=== PATIENT | female | born 1980 | race Caucasian/White ===

== ENCOUNTER 2019-07-05 17:28 | Inpatient (IN) | payer MEDICAID ==
[2019-07-05] MEDS ORDERED: Tranexamic Acid 1,000 MG in Sodium Chloride 0.9% 100 ML IV PRN (17:33)
[2019-07-05] MEDS ORDERED: Sodium Chloride 0.9% 10 ML SDV IV PRN (17:33)
[2019-07-05] MEDS ORDERED: Water For Irrigation,Sterile 1,000 ML Container IRR PRN (17:33)
[2019-07-05] MEDS ORDERED: Nalbuphine 10 MG/1 ML Vial IVPUSH PRN (17:33)
[2019-07-05] MEDS ORDERED: Sodium Chloride 0.9% 2.5 ML Syringe FLUSH PRN (17:33)
[2019-07-05] MEDS ORDERED: Lidocaine 1% 50 ML MDV INJECT PRN (17:33)
[2019-07-05] MEDS ORDERED: Misoprostol 200 MCG Tab PO PRN (17:33)
[2019-07-05] MEDS ORDERED: Ondansetron 4 MG/2 ML SDV IVPUSH PRN (17:33)
[2019-07-05] MEDS ORDERED: Methylergonovine 0.2 MG/1 ML Amp IM PRN (17:33)
[2019-07-05] MEDS ORDERED: Butorphanol 1 MG/ML SDV IVPUSH PRN (17:33)
[2019-07-05] MEDS ORDERED: Sodium Chloride 0.9% 10 ML Syringe FLUSH PRN (17:33)
[2019-07-05] MEDS ORDERED: Carboprost Tromethamine 250 MCG/1 ML Amp IM PRN (17:33)
[2019-07-05] MEDS ORDERED: Lactated Ringers 1,000 ML IV SCH (17:45)
[2019-07-05] MEDS ORDERED: Oxytocin/0.9 % Sodium Chloride 30 UNIT/500 ML BAG IV SCH (17:45)
--- NOTE | 2019-07-05 18:00 | PCM.LDHP ---
L&D History of Present Illness - General Date of Service: 07/05/19 Admit Problem/Dx: Patient Status Order with Admit Dx/Problem 07/05/19 17:33 Patient Status [ADT] Routine Admission Diagnosis/Problem Admission Diagnosis/Problem 07/05/19 17:55 at 39 5/7 weeks (PRINCESS: 07/07/19) presenting at 5 cm with bulging bag per nurse report; she is a TOLAC candidate with consents signed by Dr. Vásquez; (one prior vaginal delivery followed by one at 34 weeks due to PPROM x52 days, oligohydramnios, and mark breech position @ [facility] in [place]); O+, rubella immune, GBS negative 07/05/19 17:56 Source of Information: Patient History Limitations: Reports: No Limitations - Related Data Allergies/Adverse Reactions: Allergies Allergy/AdvReac Type Severity Reaction Status Date / Time No Known Allergies Allergy Verified 07/05/19 14:13 Home Medications: Home Meds Vit No.130/Iron/Folic [ Vitamins] 1 tab PO DAILY 03/17/15 [ History] H&P Review of Systems - Review of Systems: Review Of Systems: See Below General: Reports: No Symptoms HEENT: Reports: No Symptoms Pulmonary: Reports: No Symptoms Cardiovascular: Reports: No Symptoms Gastrointestinal: Reports: No Symptoms Genitourinary: Reports: No Symptoms Musculoskeletal: Reports: No Symptoms Skin: Reports: No Symptoms Psychiatric: Reports: No Symptoms Neurological: Reports: No Symptoms Hematologic/Lymphatic: Reports: No Symptoms Immunologic: Reports: No Symptoms L&D Exam - Exam Exam: See Below - OB Specific Contraction Intensity: Moderate Movement: Active Heart Tones: Present Heart Rate (FHR) Variability: Moderate (6-25 bmp) - Ahumada Score Ahumada Score Cervix Position: Posterior Ahumada Score Consistency: Soft Ahumada Score Effacement: >80% Ahumada Score Dilation: > 5 cm Ahumada Score 's Station: -2 Ahumada Score Total: 9 - Exam General: Alert, Oriented, Cooperative Lungs: Normal Respiratory Effort Cardiovascular: Regular Rate, Regular Rhythm GI/Abdominal Exam: Soft, Non-Tender Back Exam: Normal Inspection, Full Range of Motion Extremities: Normal Inspection, Normal Range of Motion, Non-Tender, Normal Capillary Refill Skin: Warm, Dry, Intact Neurological: Strength Equal Bilateral, Normal Gait, Normal Speech, Normal Tone , Sensation Intact Psychiatric: Alert, Normal Affect, Normal Mood - Problem List (1) Supervision of normal IUP (intrauterine ) in multigravida SNOMED Code(s): 859955958, 679335622, 945481441 ICD Code: Z34.80 - ENCOUNTER FOR SUPRVSN OF NORMAL , UNSP TRIMESTER Status: Acute Priority: High Current Visit: Yes Qualifiers: Trimester: third trimester Qualified Code(s): Z34.83 - Encounter for supervision of other normal , third trimester Problem List Initiated/Reviewed/Updated: Yes Orders Last 24hrs: Active Orders 24 hr Category Date Time Status Patient Status [ADT] Routine ADT 07/05/19 17:33 Active Heart Tones [RC] CONTINUOUS Care 07/05/19 17:33 Active Non Stress Test [RC] PER UNIT ROUTINE Care 07/05/19 17:33 Active May Shower [RC] ASDIRECTED Care 07/05/19 17:33 Active Notify Provider [RC] PRN Care 07/05/19 17:33 Active Up ad Ramona [RC] ASDIRECTED Care 07/05/19 17:33 Active Vaginal Exam [RC] PRN Care 07/05/19 17:33 Active Vital Signs [RC] PER UNIT ROUTINE Care 07/05/19 17:33 Active CBC W/O DIFF,HEMOGRAM [HEME] Routine Lab 07/05/19 17:33 Ordered RPR (SYPHILIS SERO) W/ RFLX [REF] Routine Lab 07/05/19 17:33 Ordered TYPE AND SCREEN [BBK] Routine Lab 07/05/19 17:33 Ordered Butorphanol [Stadol] Med 07/05/19 17:33 Active 1 mg IVPUSH Q1H PRN Carboprost Tromethamine [Hemabate DS] Med 07/05/19 17:33 Active 250 mcg IM ASDIRECTED PRN Lactated Ringers [Ringers, Lactated] 1,000 ml Med 07/05/19 17:45 Active IV ASDIRECTED Lidocaine 1% [Xylocaine 1%] Med 07/05/19 17:33 Active 50 ml INJECT ONETIME PRN Methylergonovine [Methergine] Med 07/05/19 17:33 Active 0.2 mg IM ASDIRECTED PRN Nalbuphine [Nubain] Med 07/05/19 17:33 Active 10 mg IVPUSH Q1H PRN Ondansetron [Zofran] Med 07/05/19 17:33 Active 4 mg IVPUSH Q4H PRN Oxytocin/0.9 % Sodium Chloride [Oxytocin 30 Unit/500 ML Med 07/05/19 17:45 Active -NS] 30 unit in 500 ml IV TITRATE Sodium Chloride 0.9% [Normal Saline] Med 07/05/19 17:33 Active 10 ml IV ASDIRECTED PRN Sodium Chloride 0.9% [Saline Flush] Med 07/05/19 17:33 Active 10 ml FLUSH ASDIRECTED PRN Sodium Chloride 0.9% [Saline Flush] Med 07/05/19 17:33 Active 2.5 ml FLUSH ASDIRECTED PRN Tranexamic Acid [Cyklokapron] 1,000 mg Med 07/05/19 17:33 Active Sodium Chloride 0.9% [Normal Saline] 100 ml IV ONETIME Water For Irrigation,Sterile [Sterile Water for Med 07/05/19 17:33 Active Irrigation] 1,000 ml IRR ASDIRECTED PRN miSOPROStoL [Cytotec] Med 07/05/19 17:33 Active 200 mcg PO ONETIME PRN Scalp Electrode [WOMSER] Per Unit Routine Oth 07/05/19 17:33 Ordered Peripheral IV Insertion Adult [OM.PC] Routine Oth 07/05/19 17:33 Ordered Resuscitation Status Routine Resus Stat 07/05/19 17:33 Ordered Medication Orders Butorphanol Tartrate (Stadol) 1 mg IVPUSH Q1H PRN PRN Reason: Pain Carboprost Tromethamine (Hemabate Ds) 250 mcg IM ASDIRECTED PRN PRN Reason: Post Hemorrhage Lactated Ringer's (Ringers, Lactated) 1,000 mls @ 150 mls/hr IV ASDIRECTED SANTIAGO Oxytocin/Sodium Chloride (Oxytocin 30 Unit/500 Ml-Ns) 30 unit in 500 mls @ 500 mls/hr IV TITRATE S[facility]IAGO Tranexamic Acid 1,000 mg/ (Sodium Chloride) 110 mls @ 660 mls/hr IV ONETIME PRN PRN Reason: Bleeding Lidocaine HCl (Xylocaine 1%) 50 ml INJECT ONETIME PRN PRN Reason: Laceration repair Methylergonovine Maleate (Methergine) 0.2 mg IM ASDIRECTED PRN PRN Reason: Post Hemorrhage Misoprostol (Cytotec) 200 mcg PO ONETIME PRN PRN Reason: Post Hemorrhage Nalbuphine HCl (Nubain) 10 mg IVPUSH Q1H PRN PRN Reason: Pain (severe 7-10) Ondansetron HCl (Zofran) 4 mg IVPUSH Q4H PRN PRN Reason: Nausea/Vomiting Sodium Chloride (Saline Flush) 10 ml FLUSH ASDIRECTED PRN PRN Reason: Keep Vein Open Sodium Chloride (Saline Flush) 2.5 ml FLUSH ASDIRECTED PRN PRN Reason: Keep Vein Open Sodium Chloride (Normal Saline) 10 ml IV ASDIRECTED PRN PRN Reason: IV Use Sterile Water (Sterile Water For Irrigation) 1,000 ml IRR ASDIRECTED PRN PRN Reason: delivery Assessment/Plan Comment:: Admit A: at 39 5/7 weeks (PRINCESS: 07/07/19) presenting at 5 cm with bulging bag per nurse report; she is a TOLAC candidate with consents signed by Dr. Vásquez; ( one prior vaginal delivery followed by one at 34 weeks due to PPROM x52 days, oligohydramnios, and mark breech position @ [facility] in [place]); O+, rubella immune, GBS negative P: Anticipate ; OR team, peds, and respiratory notified; Dr. Vásquez updated.
--- NOTE | 2019-07-05 18:26 | PCM.PREANE ---
Preanesthetic Assessment - Procedure Proposed Procedure: Standby for Delivery - Anesthesia/Transfusion/Family Hx Anesthesia History: Prior Anesthesia Without Reaction Family History of Anesthesia Reaction: No Transfusion History: Prior Transfusion Without Reaction - Review of Systems General: No Symptoms Pulmonary: No Symptoms Cardiovascular: No Symptoms Gastrointestinal: No Symptoms Neurological: No Symptoms Other: Reports: None - Physical Assessment Height: 5 ft 7 in Weight: 77.111 kg ASA Class: 2 Mental Status: Alert & Oriented x3 Airway Class: Mallampati = 1 Dentition: Reports: Normal Dentition Thyro-Mental Finger Breadths: 3 Mouth Opening Finger Breadths: 3 ROM/Head Extension: Full Lungs: Clear to Auscultation, Normal Respiratory Effort Cardiovascular: Regular Rate, Regular Rhythm - Lab Values: Laboratory Last Values WBC 8.83 K/uL (4.0-11.0) 07/05/19 17:53 RBC 3.84 M/uL (4.30-5.90) L 07/05/19 17:53 Hgb 12.2 g/dL (12.0-16.0) 07/05/19 17:53 Hct 35.4 % (36.0-46.0) L 07/05/19 17:53 MCV 92.2 fL (80.0-98.0) 07/05/19 17:53 MCH 31.8 pg (27.0-32.0) 07/05/19 17:53 MCHC 34.5 g/dL (31.0-37.0) 07/05/19 17:53 RDW Std Deviation 47.9 fl (28.0-62.0) 07/05/19 17:53 RDW Coeff of Nataliya 14 % (11.0-15.0) 07/05/19 17:53 Plt Count 231 K/uL (150-400) 07/05/19 17:53 MPV 9.50 fL (7.40-12.00) 07/05/19 17:53 Nucleated RBC % 0.0 /100WBC 07/05/19 17:53 Nucleated RBCs # 0 K/uL 07/05/19 17:53 - Allergies Allergies/Adverse Reactions: Allergies Allergy/AdvReac Type Severity Reaction Status Date / Time No Known Allergies Allergy Verified 07/05/19 14:13 - Blood Blood Available: Yes Product(s) Available: PRBC - Anesthesia Plan Free Text/Narrative:: Standby for Delivery. Plan SAB or GETA as pertinent to situation as needed. - Acknowledgements Anesthesia Type Planned: General Anesthesia, Spinal Pt an Appropriate Candidate for the Planned Anesthesia: Yes Alternatives and Risks of Anesthesia Discussed w Pt/Guardian: Yes Pt/Guardian Understands and Agrees with Anesthesia Plan: Yes PreAnesthesia Questionnaire HEENT History: Reports: None Cardiovascular History: Reports: None Respiratory History: Reports: None Gastrointestinal History: Reports: GERD Genitourinary History: Reports: None COURT CRIER History: Reports: : 3 Para: 2 LMP (Approximate): Other OB/BYN History: Previous C- Section Musculoskeletal History: Reports: None Neurological History: Reports: None Psychiatric History: Reports: None Endocrine/Metabolic History: Reports: None Hematologic History: Reports: None Other Hematologic History: Hx of Blood Transfuion with first delivery in 2006 Immunologic History: Reports: None Oncologic (Cancer) History: Reports: None Dermatologic History: Reports: None - Infectious Disease History Infectious Disease History: Reports: None - Past Surgical History GI Surgical History: Reports: Appendectomy Female Surgical History: Reports: Breast Implant, Section 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 Breast Implants - SUBSTANCE USE Smoking Status *Q: Never Smoker Tobacco Use Within Last Twelve Months: No Second Hand Smoke Exposure: No Recreational Drug Use History: No - HOME MEDS Home Medications: Home Meds Vit No.130/Iron/Folic [ Vitamins] 1 tab PO DAILY 03/17/15 [ History] - CURRENT (IN HOUSE) MEDS Current Meds: Current Medications Butorphanol Tartrate (Stadol) 1 mg IVPUSH Q1H PRN PRN Reason: Pain Carboprost Tromethamine (Hemabate Ds) 250 mcg IM ASDIRECTED PRN PRN Reason: Post Hemorrhage Lactated Ringer's (Ringers, Lactated) 1,000 mls @ 150 mls/hr IV ASDIRECTED [facility] Last Admin: 07/05/19 18:17 Dose: 150 mls/hr Oxytocin/Sodium Chloride (Oxytocin 30 Unit/500 Ml-Ns) 30 unit in 500 mls @ 500 mls/hr IV TITRATE [facility] Tranexamic Acid 1,000 mg/ (Sodium Chloride) 110 mls @ 660 mls/hr IV ONETIME PRN PRN Reason: Bleeding Lidocaine HCl (Xylocaine 1%) 50 ml INJECT ONETIME PRN PRN Reason: Laceration repair Methylergonovine Maleate (Methergine) 0.2 mg IM ASDIRECTED PRN PRN Reason: Post Hemorrhage Misoprostol (Cytotec) 200 mcg PO ONETIME PRN PRN Reason: Post Hemorrhage Nalbuphine HCl (Nubain) 10 mg IVPUSH Q1H PRN PRN Reason: Pain (severe 7-10) Ondansetron HCl (Zofran) 4 mg IVPUSH Q4H PRN PRN Reason: Nausea/Vomiting Sodium Chloride (Saline Flush) 10 ml FLUSH ASDIRECTED PRN PRN Reason: Keep Vein Open Sodium Chloride (Saline Flush) 2.5 ml FLUSH ASDIRECTED PRN PRN Reason: Keep Vein Open Sodium Chloride (Normal Saline) 10 ml IV ASDIRECTED PRN PRN Reason: IV Use Sterile Water (Sterile Water For Irrigation) 1,000 ml IRR ASDIRECTED PRN PRN Reason: delivery
--- NOTE | 2019-07-05 18:37 | PCM.SN.2 ---
- Free Text/Narrative Note: 07/05/2019: Called at 1733 by nursing supervisor slate splitting for patient planning and dilated to 5 cm. Arrived at 1745 and reviewed H&P with patient, patient's spouse , and Tarsha (Nurse Switcher). Patient speaks broken Andorran. assisting with translation. No questions at this time.
--- NOTE | 2019-07-05 19:20 | PCM.DEL ---
L & D Note - General Info Date of Service: 07/05/19 Mother's Due Date: 07/07/19 - Delivery Note Labor: Spontaneous Delivery Outcome: Livebirth Infant Delivery Method: Spontaneous Vaginal Delivery-Single Presentation: Vertex Nuchal Cord: Present, Reduced (x2) Anesthesia Type: None Anesthetic: Lidocaine (Xylocaine) 1% Plain Local Anesthetic Volume: 2cc Amniotic Fluid Description: Clear Episiotomy Type: None Laceration: 2nd Degree Suture type: Vicryl Suture size: 3-0 Placenta: Intact, Spontaneous Cord: 3 Vessels Estimated Blood Loss: 250 Resuscitation Needed: No Score 1 min: 8 Score 5 min: 9 Second Stage Interventions: Reports: Second Nurse Assessed Progress of Descent, Second Nurse Reviewed Contraction Pattern, Second Nurse Reviewed Heart Tones, Encouragement Given, Pushing Effectively Delivery Comments (Free Text/Narrative):: () viable female; head delivered with good pushing, shoulders and body followed easily after; baby to mom's abdomen [id number] for assessment; APGARs 8/9, weight pending; upon cessation of pulsing, cord was doubly clamped, cut by FOB; placenta delivered grossly intact, 3VC, EBL 250 mL; 2nd degree perineal laceration repaired with 3-0 vircyl, hemostatic and well-approximated; pitocin to IVF; fundus firm; bleeding scant; mom and baby left in stable condition with nurse at bedside for assessment - General Info Date of Service: 07/05/19 Admission Dx/Problem (Free Text): Patient Status Order with Admit Dx/Problem 07/05/19 17:33 Patient Status [ADT] Routine Admission Diagnosis/Problem Admission Diagnosis/Problem 07/05/19 17:55 at 39 5/7 weeks (PRINCESS: 07/07/19) presenting at 5 cm with bulging bag per nurse report; she is a TOLAC candidate with consents signed by Dr. Vásquez; (one prior vaginal delivery followed by one at 34 weeks due to PPROM x52 days, oligohydramnios, and mark breech position @ [facility] in [place]); O+, rubella immune, GBS negative 07/05/19 17:56 Functional Status: Reports: Pain Controlled - Review of Systems General: Reports: No Symptoms HEENT: Reports: No Symptoms Pulmonary: Reports: No Symptoms Cardiovascular: Reports: No Symptoms Gastrointestinal: Reports: No Symptoms Genitourinary: Reports: No Symptoms Musculoskeletal: Reports: No Symptoms Skin: Reports: No Symptoms Neurological: Reports: No Symptoms Psychiatric: Reports: No Symptoms - Patient Data Weight - Most Recent: 170 lb Lab Results Last 24 Hours: Laboratory Results - last 24 hr 07/05/19 07/05/19 Range/Units 17:53 17:53 WBC 8.83 (4.0-11.0) K/uL RBC 3.84 L (4.30-5.90) M/uL Hgb 12.2 (12.0-16.0) g/dL Hct 35.4 L (36.0-46.0) % MCV 92.2 (80.0-98.0) fL MCH 31.8 (27.0-32.0) pg MCHC 34.5 (31.0-37.0) g/dL RDW Std Deviation 47.9 (28.0-62.0) fl RDW Coeff of Nataliya 14 (11.0-15.0) % Plt Count 231 (150-400) K/uL MPV 9.50 (7.40-12.00) fL Nucleated RBC % 0.0 /100WBC Nucleated RBCs # 0 K/uL Blood Type O POSITIVE Antibody Screen NEGATIVE Crossmatch See Detail Med Orders - Current: Current Medications Butorphanol Tartrate (Stadol) 1 mg IVPUSH Q1H PRN PRN Reason: Pain Carboprost Tromethamine (Hemabate Ds) 250 mcg IM ASDIRECTED PRN PRN Reason: Post Hemorrhage Lactated Ringer's (Ringers, Lactated) 1,000 mls @ 150 mls/hr IV ASDIRECTED [facility] Last Admin: 07/05/19 18:17 Dose: 150 mls/hr Oxytocin/Sodium Chloride (Oxytocin 30 Unit/500 Ml-Ns) 30 unit in 500 mls @ 500 mls/hr IV TITRATE [facility] Tranexamic Acid 1,000 mg/ (Sodium Chloride) 110 mls @ 660 mls/hr IV ONETIME PRN PRN Reason: Bleeding Lidocaine HCl (Xylocaine 1%) 50 ml INJECT ONETIME PRN PRN Reason: Laceration repair Methylergonovine Maleate (Methergine) 0.2 mg IM ASDIRECTED PRN PRN Reason: Post Hemorrhage Misoprostol (Cytotec) 200 mcg PO ONETIME PRN PRN Reason: Post Hemorrhage Nalbuphine HCl (Nubain) 10 mg IVPUSH Q1H PRN PRN Reason: Pain (severe 7-10) Ondansetron HCl (Zofran) 4 mg IVPUSH Q4H PRN PRN Reason: Nausea/Vomiting Sodium Chloride (Saline Flush) 10 ml FLUSH ASDIRECTED PRN PRN Reason: Keep Vein Open Sodium Chloride (Saline Flush) 2.5 ml FLUSH ASDIRECTED PRN PRN Reason: Keep Vein Open Sodium Chloride (Normal Saline) 10 ml IV ASDIRECTED PRN PRN Reason: IV Use Sterile Water (Sterile Water For Irrigation) 1,000 ml IRR ASDIRECTED PRN PRN Reason: delivery - Exam General: Alert, Oriented, Cooperative, No Acute Distress Lungs: Normal Respiratory Effort Cardiovascular: Regular Rate, Regular Rhythm GI/Abdominal Exam: Soft, Non-Tender (2nd degree laceration repaired with 3-0 vicryl, hemostatic, well-approximated) (Female) Exam: Normal External Exam Back Exam: Normal Inspection, Full Range of Motion Extremities: Normal Inspection, Normal Range of Motion, Non-Tender, Normal Capillary Refill Skin: Warm, Dry, Intact Neurological: No New Focal Deficit, Normal Speech, Normal Tone Psy/Mental Status: Alert, Normal Affect, Normal Mood - Problem List & Annotations (1) Supervision of normal IUP (intrauterine ) in multigravida SNOMED Code(s): 935495716, 125378555, 436152669 Code(s): Z34.80 - ENCOUNTER FOR SUPRVSN OF NORMAL , UNSP TRIMESTER Status: Acute Priority: High Current Visit: Yes Qualifiers: Trimester: third trimester Qualified Code(s): Z34.83 - Encounter for supervision of other normal , third trimester (2) (vaginal after ) SNOMED Code(s): 634294566 Code(s): O34.219 - MATERNAL CARE FOR UNSP TYPE SCAR FROM PREVIOUS DEL Status: Acute Priority: High Current Visit: Yes (3) , delivered, current hospitalization SNOMED Code(s): 777282464 Code(s): O34.219 - MATERNAL CARE FOR UNSP TYPE SCAR FROM PREVIOUS DEL Status: Acute Priority: High Current Visit: Yes - Problem List Review Problem List Initiated/Reviewed/Updated: Yes - Plan Plan:: Admit A: at 39 5/7 weeks (PRINCESS: 07/07/19) presenting at 5 cm with bulging bag per nurse report; she is a TOLAC candidate with consents signed by Dr. Vásquez; ( one prior vaginal delivery followed by one at 34 weeks due to PPROM x52 days, oligohydramnios, and mark breech position @ [facility] in [place]); O+, rubella immune, GBS negative P: Anticipate ; OR team, peds, and respiratory notified; Dr. Vásquez updated. Labor A: () viable female; baby to mom's abdomen [id number] for assessment; APGARs 8/9, weight pending; placenta delivered grossly intact, 3VC, EBL 250 mL; 2nd degree perineal laceration repaired with 3-0 vircyl, hemostatic and well- approximated; pitocin to IVF; fundus firm; bleeding scant; mom and baby left in stable condition with nurse at bedside for assessment P: Routine plan of care; Dr. Vásquez updated.
[2019-07-05] MEDS ORDERED: Acetaminophen 500 MG Tab PO PRN ×2 (19:23)
[2019-07-05] MEDS ORDERED: Benzocaine/Menthol 20%-0.5% Spray 78 GM Cannister TOP PRN (19:23)
[2019-07-05] MEDS ORDERED: Bisacodyl 10 MG Supp RECTAL PRN (19:23)
[2019-07-05] MEDS ORDERED: oxyCODONE 5 MG Tab PO PRN (19:23)
[2019-07-05] MEDS ORDERED: Lanolin 100% Cream 7 GM Tube TOP PRN (19:23)
[2019-07-05] MEDS ORDERED: Docusate Sodium 100 MG Cap PO PRN (19:23)
[2019-07-05] MEDS ORDERED: Ibuprofen 400 MG Tab PO PRN (19:23)
[2019-07-05] MEDS ORDERED: Witch Hazel Medicated Pads 40/Jar TOP PRN (19:23)
[2019-07-05] MEDS: Ibuprofen 800 MG Tab PO PRN (20:00)
[2019-07-06] MEDS: Ibuprofen 800 MG Tab PO PRN ×2 (06:44→14:33)
--- NOTE | 2019-07-06 07:24 | PCM48HPAN ---
Post Anesthesia Note - EVALUATION WITHIN 48HRS OF ANESTHETIC Vital Signs in Normal Range: Yes Patient Participated in Evaluation: Yes Respiratory Function Stable: Yes Airway Patent: Yes Cardiovascular Function Stable: Yes Hydration Status Stable: Yes Pain Control Satisfactory: Yes Nausea and Vomiting Control Satisfactory: Yes Mental Status Recovered: Yes Vital Signs: Last Vital Signs Temp 36.2 C 07/06/19 05:10 Pulse 75 07/06/19 05:10 Resp 16 07/06/19 05:10 BP 109/59 L 07/06/19 05:10 Pulse Ox 97 07/06/19 05:10
--- NOTE | 2019-07-06 07:54 | PCM.DCSUM1 ---
Discharge Summary - Hospital Course Free Text/Narrative:: Discharge home with baby. Follow up in the clinic in 6 weeks for routine visit. Diagnosis: Stroke: No Modified John Scale: No Symptoms at All Modified [place] Scale Score: 0 - Discharge Data Discharge Date: 07/06/19 Discharge Disposition: Home, Self-Care 01 Condition: Good - Referral to Home Health Primary Care Physician: PCP None - Discharge Diagnosis/Problem(s) (1) Supervision of normal IUP (intrauterine ) in multigravida SNOMED Code(s): 460002372, 500783331, 103109132 ICD Code: Z34.80 - ENCOUNTER FOR SUPRVSN OF NORMAL , UNSP TRIMESTER Status: Acute Priority: High Current Visit: Yes Qualifiers: Trimester: third trimester Qualified Code(s): Z34.83 - Encounter for supervision of other normal , third trimester (2) (vaginal after ) SNOMED Code(s): 073687424 ICD Code: O34.219 - MATERNAL CARE FOR UNSP TYPE SCAR FROM PREVIOUS DEL Status: Acute Priority: High Current Visit: Yes (3) , delivered, current hospitalization SNOMED Code(s): 485827873 ICD Code: O34.219 - MATERNAL CARE FOR UNSP TYPE SCAR FROM PREVIOUS DEL Status: Acute Priority: High Current Visit: Yes - Patient Instructions Diet: Regular Diet as Tolerated, Drink 8-10+ Glasses/Day Activity: As Tolerated, No Strenuous Activities, Rest and Relax Today Driving: May Drive Today Showering/Bathing: May Shower Wound/Incision Care: Keep Operative Site/Wound Site Clean and Dry Notify Provider of: Fever, Increased Pain, Swelling and Redness, Drainage, Nausea and/or Vomiting - Discharge Plan *PRESCRIPTION DRUG MONITORING PROGRAM REVIEWED*: Not Applicable *COPY OF PRESCRIPTION DRUG MONITORING REPORT IN PATIENT ELLE: Not Applicable Prescriptions/Med Rec: Ibuprofen [Motrin] 800 mg PO Q6H PRN #90 tablet PRN Reason: Pain Home Medications: Home Meds Vit No.130/Iron/Folic [ Vitamins] 1 tab PO DAILY 03/17/15 [ History] Ibuprofen [Motrin] 800 mg PO Q6H PRN #90 tablet 07/06/19 [Rx] Oxygen Therapy Mode: Room Air - Discharge Summary/Plan Comment DC Time >30 min.: Yes - General Info Date of Service: 07/06/19 Admission Dx/Problem (Free Text: Patient Status Order with Admit Dx/Problem 07/05/19 17:33 Patient Status [ADT] Routine Admission Diagnosis/Problem Admission Diagnosis/Problem 07/05/19 17:55 at 39 5/7 weeks (PRINCESS: 07/07/19) presenting at 5 cm with bulging bag per nurse report; she is a TOLAC candidate with consents signed by Dr. Vásquez; (one prior vaginal delivery followed by one at 34 weeks due to PPROM x52 days, oligohydramnios, and mark breech position @ [facility] in [place]); O+, rubella immune, GBS negative 07/05/19 17:56 Functional Status: Reports: Pain Controlled, Tolerating Diet, Ambulating, Urinating - Review of Systems General: Reports: No Symptoms HEENT: Reports: No Symptoms Pulmonary: Reports: No Symptoms Cardiovascular: Reports: No Symptoms Gastrointestinal: Reports: No Symptoms Genitourinary: Reports: No Symptoms Musculoskeletal: Reports: No Symptoms Skin: Reports: No Symptoms Neurological: Reports: No Symptoms Psychiatric: Reports: No Symptoms - Patient Data Vitals - Most Recent: Last Vital Signs Temp 97.2 F 07/06/19 07:45 Pulse 77 07/06/19 07:45 Resp 15 07/06/19 07:45 BP 115/58 L 07/06/19 07:45 Pulse Ox 98 07/06/19 07:45 Weight - Most Recent: 170 lb I&O - Last 24 hours: Intake & Output 07/05/19 07/06/19 07/06/19 22:59 06:59 14:59 Intake Total 500 Balance 500 Lab Results - Last 24 hrs: Laboratory Results - last 24 hr 07/05/19 07/05/19 07/06/19 Range/Units 17:53 17:53 05:18 WBC 8.83 (4.0-11.0) K/uL RBC 3.84 L (4.30-5.90) M/uL Hgb 12.2 10.3 L (12.0-16.0) g/dL Hct 35.4 L 29.6 L (36.0-46.0) % MCV 92.2 (80.0-98.0) fL MCH 31.8 (27.0-32.0) pg MCHC 34.5 (31.0-37.0) g/dL RDW Std Deviation 47.9 (28.0-62.0) fl RDW Coeff of Nataliya 14 (11.0-15.0) % Plt Count 231 (150-400) K/uL MPV 9.50 (7.40-12.00) fL Nucleated RBC % 0.0 /100WBC Nucleated RBCs # 0 K/uL Blood Type O POSITIVE Antibody Screen NEGATIVE Crossmatch See Detail Med Orders - Current: Current Medications Acetaminophen (Tylenol Extra Strength) 500 mg PO Q4H PRN PRN Reason: Pain Acetaminophen (Tylenol Extra Strength) 1,000 mg PO Q4H PRN PRN Reason: Pain Benzocaine/Menthol (Dermoplast Pain Relief 20%-0.5% Exira) 78 gm TOP ASDIRECTED PRN PRN Reason: Perineal Comfort Measure Last Admin: 07/05/19 19:58 Dose: 1 canister Bisacodyl (Dulcolax) 10 mg RECTAL ONETIME PRN PRN Reason: Constipation Docusate Sodium (Colace) 100 mg PO BID PRN PRN Reason: Constipation Last Admin: 07/05/19 20:00 Dose: 100 mg Emollient Ointment (Lansinoh Hpa) 0 gm TOP ASDIRECTED PRN PRN Reason: Sore Nipples Ibuprofen (Motrin) 400 mg PO Q4H PRN PRN Reason: Pain Ibuprofen (Motrin) 800 mg PO Q6H PRN PRN Reason: Pain Last Admin: 07/06/19 06:44 Dose: 800 mg Oxycodone HCl (Oxycodone) 5 mg PO Q2H PRN PRN Reason: Pain Witch Shruti (Tucks) 1 pad TOP ASDIRECTED PRN PRN Reason: comfort care Last Admin: 07/05/19 19:59 Dose: 1 tub Discontinued Medications Butorphanol Tartrate (Stadol) 1 mg IVPUSH Q1H PRN PRN Reason: Pain Carboprost Tromethamine (Hemabate Ds) 250 mcg IM ASDIRECTED PRN PRN Reason: Post Hemorrhage Lactated Ringer's (Ringers, Lactated) 1,000 mls @ 150 mls/hr IV ASDIRECTED SANTIAGO Last Admin: 07/05/19 18:17 Dose: 150 mls/hr Oxytocin/Sodium Chloride (Oxytocin 30 Unit/500 Ml-Ns) 30 unit in 500 mls @ 500 mls/hr IV TITRATE SANTIAGO Last Admin: 07/05/19 18:47 Dose: 500 mls/hr Tranexamic Acid 1,000 mg/ (Sodium Chloride) 110 mls @ 660 mls/hr IV ONETIME PRN PRN Reason: Bleeding Lidocaine HCl (Xylocaine 1%) 50 ml INJECT ONETIME PRN PRN Reason: Laceration repair Last Admin: 07/05/19 19:23 Dose: 50 ml Methylergonovine Maleate (Methergine) 0.2 mg IM ASDIRECTED PRN PRN Reason: Post Hemorrhage Misoprostol (Cytotec) 200 mcg PO ONETIME PRN PRN Reason: Post Hemorrhage Nalbuphine HCl (Nubain) 10 mg IVPUSH Q1H PRN PRN Reason: Pain (severe 7-10) Ondansetron HCl (Zofran) 4 mg IVPUSH Q4H PRN PRN Reason: Nausea/Vomiting Sodium Chloride (Saline Flush) 10 ml FLUSH ASDIRECTED PRN PRN Reason: Keep Vein Open Sodium Chloride (Saline Flush) 2.5 ml FLUSH ASDIRECTED PRN PRN Reason: Keep Vein Open Sodium Chloride (Normal Saline) 10 ml IV ASDIRECTED PRN PRN Reason: IV Use Sterile Water (Sterile Water For Irrigation) 1,000 ml IRR ASDIRECTED PRN PRN Reason: delivery - Exam General: Reports: Alert, Oriented, Cooperative, No Acute Distress Lungs: Reports: Normal Respiratory Effort Cardiovascular: Reports: Regular Rate, Regular Rhythm GI/Abdominal Exam: Soft, Non-Tender (Female) Exam: Deferred Rectal (Female) Exam: Deferred Back Exam: Reports: Normal Inspection, Full Range of Motion Extremities: Normal Inspection, Normal Range of Motion, Non-Tender, Normal Capillary Refill Skin: Reports: Warm, Dry, Intact Wound/Incisions: Reports: Healing Well Neurological: Reports: No New Focal Deficit, Normal Gait, Normal Speech, Normal Tone Psy/Mental Status: Reports: Alert, Normal Affect, Normal Mood
[2019-07-06 14:38] VITALS: BP 111/63; PULSE 67
== END 2019-07-06 20:23 | disposition home or self-care (01) | DRG 807 ==
LOC: MW.OB 17:28 → MW.OBCHECK 17:28 → MW.OB 17:33 → OBSVTOIN 18:46 → MW.OB 22:10
PROVIDERS: ADMIT Obstetrics & Gynecology; ATTEND Obstetrics & Gynecology
PROC: 10E0XZZ Delivery of Products of Conception, External Approach (ICD-10-PCS; principal; 2019-07-05)
PROC: 0KQM0ZZ Repair Perineum Muscle, Open Approach (ICD-10-PCS; 2019-07-05)
PROC: 3E0R3BZ Introduction of Anesthetic Agent into Spinal Canal, Percutaneous Approach (ICD-10-PCS; 2019-07-05)
DX: O34.211 Maternal care for low transverse scar from previous cesarean delivery (principal); Z37.0 Single live birth; Z3A.39 39 weeks gestation of pregnancy; O70.1 Second degree perineal laceration during delivery; O69.81X0 Labor and delivery complicated by cord around neck, without compression, not applicable or unspecified
CPT/HCPCS: 36415; 59025; 59409; 85014; 85018; 85027; 86592; 86850; 86900; 86901; 86920; 86921; 86922; A9270-GY; J2001; J2590; J7120